=== PATIENT | female | born 1940 ===

== ENCOUNTER 2022-09-20 10:00 | Inpatient (IN) | payer OTHER ==
[~2022-09-20] VITALS: Ht 167.6 cm; Wt 59.9 kg
[2022-09-21] MEDS ORDERED: ZOLOFT100 MG PO (11:21)
[2022-09-21] MEDS ORDERED: SYNTHROID150 MCG PO (11:21)
[2022-09-21] MEDS ORDERED: CRESTOR40 MG PO (11:21)
[2022-09-21] MEDS ORDERED: PLAVIX75 MG PO (11:21)
[2022-09-21] MEDS ORDERED: ROPINIROLE HCL4 M1 PO (11:22)
[2022-09-21] MEDS ORDERED: [UNRECOGNIZED DRUG - OTHER] (11:24)
[2022-09-24] MEDS ORDERED: GABAPENTIN100 M2 (13:07)
[2022-09-24] MEDS ORDERED: ALENDRONATE SOD70 MG (13:07)
[2022-09-24] MEDS ORDERED: CARBIDOPA-LEVO1 EA10 (13:07)
[2022-09-29] MEDS ORDERED: HYOSCYAMINE0.125 M1 SL (13:40)
[2022-09-29] MEDS ORDERED: PAIN RELIEVER500 M2 PO (13:41)
== END 2022-09-29 14:57 | disposition home or self-care (01) | DRG 330 ==
LOC: O/R 09-24 06:40 → SURG 09-24 06:40 → SURH 09-24 07:45 → SURG 09-24 19:09
PROVIDERS: ADMIT Surgery; ATTEND Surgery
PROC: 0DBP4ZZ Excision of Rectum, Percutaneous Endoscopic Approach (ICD-10-PCS; 2022-09-24)
PROC: 0DNW4ZZ Release Peritoneum, Percutaneous Endoscopic Approach (ICD-10-PCS; 2022-09-24)
PROC: 0WQF4ZZ Repair Abdominal Wall, Percutaneous Endoscopic Approach (ICD-10-PCS; 2022-09-24)
PROC: 0DJD8ZZ Inspection of Lower Intestinal Tract, Via Natural or Artificial Opening Endoscopic (ICD-10-PCS; 2022-09-24)
PROC: 0DBM4ZZ Excision of Descending Colon, Percutaneous Endoscopic Approach (ICD-10-PCS; principal; 2022-09-24 07:45)
DX: Z43.3 Encounter for attention to colostomy (principal); K57.32 Diverticulitis of large intestine without perforation or abscess without bleeding; K62.4 Stenosis of anus and rectum; R53.81 Other malaise; R19.8 Other specified symptoms and signs involving the digestive system and abdomen; K43.5 Parastomal hernia without obstruction or gangrene; I10 Essential (primary) hypertension; E03.8 Other specified hypothyroidism; G20 Parkinson's disease

== ENCOUNTER 2022-10-03 18:49 | Inpatient (IN) | payer OTHER ==
[~2022-10-03] VITALS: Ht 167.6 cm; Wt 59.9 kg
[~2022-10-03 18:49] MED LIST: ALENDRONATE SOD70 MG; CARBIDOPA-LEVO1 EA10; CRESTOR40 MG PO; GABAPENTIN100 M2; HYOSCYAMINE0.125 M1 SL; PAIN RELIEVER500 M2 PO; PLAVIX75 MG PO; ROPINIROLE HCL4 M1 PO; SYNTHROID150 MCG PO; ZOLOFT100 MG PO; [UNRECOGNIZED DRUG - OTHER]
--- NOTE | 2022-10-03 19:37 | NUR ---
SE RECIBE FEMINA ALERTA Y ORIENTADA X3 QUIEN REFIERE CARR ESTADO PRESENTANDO FIEBRE HACE UNOS BREWER. ES PTE DE LA ISABEL YASMIN VALENTINO LA CUAL LA REFIERE PARA [place] DE EMERGENCIAS CON RESULTADOS DE LABORATORIO. SE MONITOREAN S/V Y SE UBICA.
--- NOTE | 2022-10-03 20:40 | NUR ---
RN NICK EDUCA A PACIENTE SOBRE EL [place] MEDICO Y ESTA REFIRIO ENTENDER. LA MISMA CANALIZA PACIENTE Y ADMINITRA MEDS TADEO ORDEN MEDICA. SE HEENA MUESTRAS DE LABORAOTRIO Y SE ENTREGA ENVASE DE U/A Y U/C.
[2022-10-09] MEDS ORDERED: QUESTRAN PACKET4 GM PO (16:56)
== END 2022-10-09 18:29 | disposition home or self-care (01) | DRG 690 ==
LOC: ER 18:49 → SURH 10-04 08:17
PROVIDERS: ADMIT Surgery; ATTEND Surgery
PROC: BW21ZZZ Computerized Tomography (CT Scan) of Abdomen and Pelvis (ICD-10-PCS; principal; 2022-10-04)
DX: N39.0 Urinary tract infection, site not specified (principal); K51.50 Left sided colitis without complications; K91.89 Other postprocedural complications and disorders of digestive system; Z16.12 Extended spectrum beta lactamase (ESBL) resistance; B96.20 Unspecified Escherichia coli [E. coli] as the cause of diseases classified elsewhere; E86.0 Dehydration; I10 Essential (primary) hypertension; G20 Parkinson's disease; E03.8 Other specified hypothyroidism; Z90.49 Acquired absence of other specified parts of digestive tract; Z86.73 Personal history of transient ischemic attack (TIA), and cerebral infarction without residual deficits